=== PATIENT | female | born 1940 | race Caucasian/White ===

== ENCOUNTER → 2016-05-30 | Outpatient (CLI) | payer MEDICARE, OTHER | END | disposition home or self-care (01) | LOC: GMAL 12:16 | PROVIDERS: ATTEND Family Medicine | DX: D51.3 Other dietary vitamin B12 deficiency anemia (principal); E55.9 Vitamin D deficiency, unspecified ==

== ENCOUNTER → 2016-05-31 | Outpatient (CLI) | payer MEDICARE, OTHER | LOC: GMAL 14:12 | PROVIDERS: ATTEND Family Medicine | DX: D64.9 Anemia, unspecified (principal) ==

== ENCOUNTER → 2016-11-23 | Outpatient (CLI) | payer MEDICARE, OTHER | END | disposition home or self-care (01) | LOC: GMAL 11:14 | PROVIDERS: ATTEND Family Medicine | DX: R53.82 Chronic fatigue, unspecified (principal); E78.4 Other hyperlipidemia; I10 Essential (primary) hypertension ==

== ENCOUNTER → 2016-12-05 | Outpatient (CLI) | payer MEDICARE, OTHER ==
--- NOTE | 2016-12-07 11:45 | MAM ---
EXAM DESCRIPTION: 3D Screening BILATERAL : Digital Mammography. CLINICAL HISTORY: 76 years Female SCREENING . No complaints. Mother and sister with breast cancer. Postmenopausal. No HRT. COMPARISON: 2-D digital screening bilateral studies 12/01/2015 and 01/29/2013.. Report from prior examination also reviewed. TECHNIQUE: Bilateral CC and MLO projection full-field images, 3-D tomosynthesis digital mammographic technique. Also bilateral synthesized CC/ MLO full-field images. CAD not utilized. FINDINGS: The breast parenchymal density pattern is: Scattered areas of fibroglandular density. No skin thickening or nipple retraction bilateral solitary microcalcifications. Intramammary lymph node 930 clock position posterior third left breast. Bilateral vascular calcifications. No focal, stellate mass or density, focal asymmetry , and no suspicious microcalcifications bilaterally. Stable mammograms compared to prior study, taking into account differences in mammographic technique IMPRESSION: BI-RADS CATEGORY: 2 - BENIGN FINDINGS. FOLLOW UP: Routine digital bilateral screening, one year interval from November 2016. Written communication explaining the IMPRESSION and follow-up, will be mailed to the patient and referring health care provider. According to the [employer], yearly mammograms are recommended starting at age 40 and continuing as long as a woman is in good health. Any breast change noted on a breast self-exam should be reported promptly to the patient's healthcare provider. Breast MRI is recommended for women with an approximately 20-25% or greater lifetime risk of breast cancer, including women with a strong family history of breast or ovarian cancer and women who have been treated for Hodgkin's disease. A negative mammographic report should not delay tissue diagnosis in patients with significant clinical history or physical findings. Extremely dense breast tissue limits the sensitivity of digital mammography. Electronically signed by: Jalil Correa MD 12/07/2016 11:43 AM CDT
== END ==
LOC: MAMMO 13:38
PROVIDERS: ATTEND Family Medicine
DX: Z12.31 Encounter for screening mammogram for malignant neoplasm of breast (principal)
CPT/HCPCS: 77063; G0202

== ENCOUNTER → 2017-11-22 | Outpatient (CLI) | payer MEDICARE, OTHER | LOC: GMAL 10:30 | PROVIDERS: ATTEND Family Medicine | DX: D51.3 Other dietary vitamin B12 deficiency anemia (principal); D64.9 Anemia, unspecified; E55.9 Vitamin D deficiency, unspecified ==

== ENCOUNTER → 2017-12-14 | Outpatient (CLI) | payer MEDICARE, OTHER ==
--- NOTE | 2017-12-17 16:53 | MAM ---
EXAM DESCRIPTION: 3D Screening BILATERAL : Digital Mammography. CLINICAL HISTORY: 77 years Female SCREENING . No complaints or personal history of breast cancer. Mother and sister with breast cancer. Childbirth. Postmenopausal 43 years. Has taken HRT 5 or more years ago. Lifetime risk of developing breast cancer (Tyrer-Cuzick model)(%): 13.9. COMPARISON: Bilateral screening digital breast tomosynthesis 12/05/2016. TECHNIQUE: Bilateral CC and MLO projection full-field images, Digital tomosynthesis mammographic technique. Bilateral digital 2-D full-field MLO images. CAD not utilized. FINDINGS: The breast parenchymal density pattern is: Scattered areas of fibroglandular density. No skin thickening or nipple retraction. Small bilateral axillary lymph nodes. Bilateral solitary microcalcifications. Nodular mass density in the posterior third of the left breast at the 7:00 may have enlarged since the prior study. 6.5 cm from the nipple. No new focal, stellate mass or density, focal asymmetry , and no suspicious microcalcifications right breast. IMPRESSION: BI-RADS CATEGORY: 0 - INCOMPLETE- Need additional imaging evaluation. FOLLOW-UP: Recall for additional imaging: Left breast targeted ultrasound of the region of interest. Diagnostic digital mammography if indicated by the sonographic images.. Written communication concerning the IMPRESSION and Follow-up, will be mailed to the patient and referring health care provider. Electronically signed by: Jalil Correa MD 12/17/2017 4:52 PM CDT
== END ==
LOC: MAMMO 13:20
PROVIDERS: ATTEND Family Medicine
DX: Z12.31 Encounter for screening mammogram for malignant neoplasm of breast (principal)

== ENCOUNTER → 2017-12-31 | Outpatient (CLI) | payer MEDICARE, OTHER ==
--- NOTE | 2017-12-31 20:42 | US ---
EXAM DESCRIPTION: Breast,Left: Ultrasound CLINICAL HISTORY: 77 yearsFemaleABNORMAL MAMMOGRAM COMPARISON: Digital screening tomosynthesis bilateral breast 12/14/2017. TECHNIQUE: Transcutaneous scanning of the left breast utilizing romeo-scale and Doppler modes. Scanning performed by the gas jockey and Dr. Correa. FINDINGS: Scanning of the lower inner quadrant of the left breast middle third and anterior third. Heterogeneous fatty echotexture with scattered fibroglandular elements more anteriorly. No distinct solid mass or cyst. No parenchymal edema or large calcifications. No overlying skin changes. Normal vascularity. IMPRESSION: BI-RADS CATEGORY: 0 - INCOMPLETE- Need additional imaging evaluation. FOLLOW-UP: Recall for additional imaging: Orthogonal digital full-field diagnostic imaging left breast.. Written communication concerning the IMPRESSION and Follow-up, will be mailed to the patient and referring health care provider. Electronically signed by: Jalil Correa MD 12/31/2017 8:41 PM [facility]
== END ==
LOC: US 10:00
PROVIDERS: ATTEND Family Medicine
DX: R92.8 Other abnormal and inconclusive findings on diagnostic imaging of breast (principal)

== ENCOUNTER 2018-02-18 20:29 | Emergency (ER) | payer MEDICARE, OTHER ==
[2018-02-18 20:46] VITALS: TEMP 96.2
[2018-02-18] MEDS ORDERED: ONDANSETRON INJ 4 MG/2 ML VIAL IV ONE (20:54)
--- NOTE | 2018-02-18 20:57 | ED.PDOC ---
History of Present Illness - General Chief Complaint: Chest Pain/KS Stated Complaint: CHEST PAIN, N/V Time Seen by Provider: 02/18/18 20:49 Source: patient, family Exam Limitations: no limitations - History of Present Illness Initial Comments: Patient presents with N/V x three. She was sitting down and about to eat when it occurred. She had a hard bowel movement this morning. She says her abdomen "feels funny". She denies chest pain but says that she was worried about a heart attack because her father of one. No other complaints. Timing/Duration: 1 hour Severity: mild Improving Factors: nothing Worsening Factors: nothing Associated Symptoms: denies symptoms Allergies/Adverse Reactions: Allergies NO KNOWN ALLERGY Allergy (Verified 02/18/18 20:43) Home Medications: Ambulatory Orders Aspirin [Baby Aspirin] 81 mg PO QD 11/06/14 Multiple Vitamin [Multi-Vitamin] 1 tab PO DAILY 11/06/14 Atenolol & Chlorthalidone [Atenolol/Chlorthalidone 100-25 mg] 1 tab PO DAILY 11/09/14 Biotin 1,000 mcg PO DAILY 11/09/14 Calcium W/ Vitamins D & K [Calcium + D] 1 chw PO DAILY 11/09/14 Diltiazem HCl Coated Beads [Diltiazem Cd] 90 mg PO BID 11/09/14 Esomeprazole Magnesium [Nexium] 40 mg PO DAILY 11/09/14 Potassium Chloride [Micro-K] 8 meq PO TID 11/09/14 Ondansetron HCl [Zofran] 4 mg PO Q6HRS #10 ml 02/18/18 Simvastatin 20 mg PO DAILY 02/18/18 Review of Systems - Review of Systems Constitutional: States: no symptoms reported EENTM: States: no symptoms reported Respiratory: States: no symptoms reported Cardiology: States: no symptoms reported Gastrointestinal/Abdominal: States: see HPI Genitourinary: States: no symptoms reported Musculoskeletal: States: no symptoms reported Skin: States: no symptoms reported Neurological: States: no symptoms reported Endocrine: States: no symptoms reported Hematologic/Lymphatic: States: no symptoms reported Past Medical History (General) - Patient Medical History Hx Seizures: No Hx Dementia: No Hx Congestive Heart Failure: No Hx Thyroid Disease: No Hx Diabetes: No Family Medical History - Family History Mother Family History: No Known Physical Exam - Physical Exam General Appearance: Alert Eye Exam: bilateral normal Ears, Nose, Throat: normal ENT inspection Neck: non-tender, full range of motion, supple Respiratory: lungs clear, normal breath sounds Cardiovascular/Chest: normal peripheral pulses, regular rate, rhythm, no edema Gastrointestinal/Abdominal: normal bowel sounds, non tender, soft Back Exam: normal inspection, no CVA tenderness Extremity: normal range of motion, non-tender, normal inspection Neurologic: no motor/sensory deficits, alert, normal mood/affect, oriented x 3 Skin Exam: normal color Lymphatic: no adenopathy Progress - Progress Progress: 02/18/18 23:33 EKG showed sinus bradycardia. Patient was symptom free in the E.D. CT abdomen/pelvis showed no acute disease. Troponin negative. 02/18/18 23:37 This is not likely cardiac as she had no chest pain and labs/EKG unremarkable. Likely gastroenteritis. E.R. warnings given. Care instructions given. Questions were elicited and answered. The patient voiced understanding and agreement with the plan. Departure - Departure Clinical Impression: Gastroenteritis Disposition: Discharge to Home or Self Care Condition: Good Departure Forms: ED Discharge - Pt. Copy, Patient Portal Self Enrollment Instructions: DI for Chest Pain Diet: resume usual diet Activity: increase activity as tolerated Referrals: Delmer Lorenzo III, MD [Primary Care Provider] - 1-2 Weeks Prescriptions: Ondansetron HCl [Zofran] 4 mg PO Q6HRS #10 ml Home Medications: Ambulatory Orders Aspirin [Baby Aspirin] 81 mg PO QD 11/06/14 Multiple Vitamin [Multi-Vitamin] 1 tab PO DAILY 11/06/14 Atenolol & Chlorthalidone [Atenolol/Chlorthalidone 100-25 mg] 1 tab PO DAILY 11/09/14 Biotin 1,000 mcg PO DAILY 11/09/14 Calcium W/ Vitamins D & K [Calcium + D] 1 chw PO DAILY 11/09/14 Diltiazem HCl Coated Beads [Diltiazem Cd] 90 mg PO BID 11/09/14 Esomeprazole Magnesium [Nexium] 40 mg PO DAILY 11/09/14 Potassium Chloride [Micro-K] 8 meq PO TID 11/09/14 Ondansetron HCl [Zofran] 4 mg PO Q6HRS #10 ml 02/18/18 Simvastatin 20 mg PO DAILY 02/18/18 Additional Instructions: Increase oral fluids. Take medication as prescribed. Return to the E.R. for worsening symptoms.
--- NOTE | 2018-02-18 21:18 | RAD ---
EXAM DESCRIPTION: AP view of the chest CLINICAL HISTORY:77 years Female, chest pain Comparison: None FINDINGS: No focal lung consolidation. No pleural effusion. No pneumothorax. Cardiac and mediastinal silhouette is unremarkable. No acute osseous abnormality. Soft tissues are unremarkable. IMPRESSION: No acute findings. No focal lung consolidation. Electronically signed by: Balbir Ghosh DO 02/18/2018 9:16 PM [employer]ATIONAL SALES [employer]
[2018-02-18] MEDS ORDERED: POTASSIUM CHLORIDE 20 MEQ TAB PO ONE (21:45)
--- NOTE | 2018-02-18 22:21 | CT ---
CLINICAL HISTORY: abdominal pain and vomiting COMPARISON: None. 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 FINDINGS: The heart is mildly enlarged. Abdomen: The liver is normal in appearance. There is no biliary dilatation. There is a small hiatal hernia. Gallbladder is normally distended. There is a moderate duodenal diverticulum. The pancreas and spleen are normal in appearance. The adrenal glands and kidneys are unremarkable. Abdominal aorta is normal in course and caliber without aneurysm. There is no free air. There is no retroperitoneal adenopathy.The abdominal aorta is moderately calcified without aneurysm. Pelvis: There is severe diverticulosis of essentially the entire colon. Urinary bladder is unremarkable. There is no free fluid. Appendix is normal. Skeleton: There are no acute osseous findings. No suspicious bony lesions. IMPRESSION: No acute inflammatory process. No bowel obstruction. No renal or ureteral calculi. Electronically signed by: Sukhdeep Eden MD 02/18/2018 10:19 PM SLICE CUTTING MACHINE OPERATOR HELPER
[2018-02-18] MEDS ORDERED: ONDANSETRON ODT (ER DISP) 8 MG TAB PO ONE (23:39)
[2018-02-19 00:27] VITALS: BP 179/77; O2SAT 98
== END 2018-02-18 23:55 | disposition home or self-care (01) ==
LOC: ER 20:29
DX: K52.9 Noninfective gastroenteritis and colitis, unspecified (principal); R00.1 Bradycardia, unspecified
CPT/HCPCS: 71045; 74177; 80053; 82550; 82553; 83690; 83880; 84484; 85025; 85610; 85730; J2405

== ENCOUNTER → 2018-02-25 | Outpatient (CLI) | payer MEDICARE, OTHER ==
--- NOTE | 2018-02-25 15:08 | MRI ---
EXAM DESCRIPTION: Brain w/oContrast CLINICAL HISTORY: TIA COMPARISON: None available TECHNIQUE: Non contrast MRI of the brain is performed according to our usual protocol including multiplanar multi sequence technique. FINDINGS: Sagittal T1 images show intact corpus callosum. Normal pituitary gland with normal T1 appearance of the andrey and medulla and upper cervical cord. Normal signal intensity within the clivus and calvarium. Prominent hyperostosis frontalis interna. Axial T2 fat sat images reveal preservation of intracranial vascular flow voids. Normal romeo matter T2 signal intensity. Scattered hyperintensities are seen in the subcortical and deep central white matter both cerebral hemispheres consistent with chronic microvascular ischemic changes related to aging, diabetes or hypertension. Prominent ventricles and sulci consistent with age-related cerebral volume loss. The globes appear intact and symmetrical. No abnormal fluid signal in the paranasal sinuses. There is abnormal fluid signal in the left tympanic cavity and left mastoid air cells consistent with otomastoid effusion. Correlate with ENT exam. Axial flair images show increased signal intensity in the subcortical and central white matter of both cerebral hemispheres.. Diffusion weighted images are negative for focal intense increased signal intensity in the brain parenchyma to suggest restricted diffusion. ADC mapping is negative. Axial T1 images show normal romeo-white matter differentiation. No high signal intensity hemorrhagic lesion of the brain parenchyma. No subdural hematoma. Axial susceptibility weighted images are negative for focal signal loss to suggest abnormal brain parenchymal calcification or hemosiderin deposition. IMPRESSION: Chronic microvascular ischemic changes in the cerebral white matter. No acute intracranial pathologic process. Electronically signed by: Tony Zuñiga MD 02/25/2018 3:07 PM [facility]
== END ==
LOC: MRI 14:18
PROVIDERS: ATTEND Family Medicine
DX: G45.9 Transient cerebral ischemic attack, unspecified (principal)

== ENCOUNTER 2018-09-02 05:41 | Day surgery (SDC) | payer MEDICARE, OTHER ==
[2018-09-02] MEDS ORDERED: PROPARACAINE 0.5% OPHTH SOL 15 ML BTTL ONE (06:00)
[2018-09-02] MEDS ORDERED: MOXIFLOXACIN HCL (OPHTH) 1 DROP DROPS ONE (06:00)
[2018-09-02] MEDS ORDERED: TROP 1%/CYCLOPEN 1%/PHENYL 2% DROPS ONE (06:00)
[2018-09-02] MEDS ORDERED: MIDAZOLAM INJ 2 MG/2 ML VIAL ONE (10:12)
[2018-09-02] MEDS ORDERED: LIDOCAINE 1% MPF 2 ML VIAL INJ ONE (10:43)
[2018-09-02] MEDS ORDERED: MOXIFLOXACIN HCL (OPHTH) 1 DROP DROPS RIGHT_EYE ONE ×2 (10:46→10:54)
[2018-09-02] MEDS ORDERED: TOBRAMYCIN SULF 0.3 % OPHT SOL 1 DROP RIGHT_EYE ONE ×2 (10:46→10:54)
[2018-09-02] MEDS ORDERED: DEXAMETHASONE 0.1% OPHTH SOL 1 DROP RIGHT_EYE ONE ×2 (10:46→10:54)
[2018-09-02] MEDS ORDERED: BRIMONIDINE 0.2% OPHTH DROPS RIGHT_EYE ONE ×2 (10:47→10:54)
== END 2018-09-02 11:30 | disposition home or self-care (01) ==
LOC: AMB 05:41
PROVIDERS: ATTEND Ophthalmology
DX: H25.11 Age-related nuclear cataract, right eye (principal); I10 Essential (primary) hypertension; Z88.5 Allergy status to narcotic agent; Z79.82 Long term (current) use of aspirin
CPT/HCPCS: 00142; 66984; J2250

== ENCOUNTER 2018-09-16 05:46 | Day surgery (SDC) | payer MEDICARE, OTHER ==
[2018-09-16] MEDS ORDERED: MIDAZOLAM INJ 2 MG/2 ML VIAL ONE (06:57)
[2018-09-16] MEDS ORDERED: TROP 1%/CYCLOPEN 1%/PHENYL 2% DROPS ONE (07:00)
[2018-09-16] MEDS ORDERED: PROPARACAINE 0.5% OPHTH SOL 15 ML BTTL LEFT_EYE ONE (09:05)
[2018-09-16] MEDS ORDERED: MOXIFLOXACIN HCL (OPHTH) 1 DROP DROPS LEFT_EYE ONE ×2 (09:12→09:23)
[2018-09-16] MEDS ORDERED: DEXAMETHASONE 0.1% OPHTH SOL 1 DROP LEFT_EYE ONE ×2 (09:12→09:23)
[2018-09-16] MEDS ORDERED: TOBRAMYCIN SULF 0.3 % OPHT SOL 1 DROP LEFT_EYE ONE ×2 (09:12→09:23)
[2018-09-16] MEDS ORDERED: LIDOCAINE 1% MPF 2 ML VIAL INJ ONE (09:12)
[2018-09-16] MEDS ORDERED: BRIMONIDINE 0.2% OPHTH DROPS LEFT_EYE ONE ×2 (09:13→09:23)
== END 2018-09-16 10:10 | disposition home or self-care (01) ==
LOC: AMB 05:46
PROVIDERS: ATTEND Ophthalmology
DX: H25.12 Age-related nuclear cataract, left eye (principal); I10 Essential (primary) hypertension; Z88.5 Allergy status to narcotic agent; Z79.82 Long term (current) use of aspirin
CPT/HCPCS: 00142; 66984; J2250

== ENCOUNTER → 2018-11-22 | Outpatient (CLI) | payer MEDICARE, OTHER | LOC: GMAL 12:16 | PROVIDERS: ATTEND Family Medicine | DX: I10 Essential (primary) hypertension (principal); E11.9 Type 2 diabetes mellitus without complications; E78.49 Other hyperlipidemia ==

== ENCOUNTER → 2019-04-08 | Outpatient (CLI) | payer MEDICARE, OTHER | LOC: GMAL 10:40 | PROVIDERS: ATTEND Family Medicine | DX: D51.3 Other dietary vitamin B12 deficiency anemia (principal); R53.82 Chronic fatigue, unspecified; E55.9 Vitamin D deficiency, unspecified; I10 Essential (primary) hypertension; E11.9 Type 2 diabetes mellitus without complications; E78.49 Other hyperlipidemia ==

== ENCOUNTER 2019-08-25 16:39 | Emergency (ER) | payer MEDICARE, OTHER ==
--- NOTE | 2019-08-25 17:25 | ED.PDOC ---
History of Present Illness - General Time Seen by Provider: 08/25/19 17:01 - History of Present Illness Initial Comments: CC: left ear foreign body 79 F +pmh presents to ED c/o retained rubber ear piece in her left ear from her hearing aid. Denies associated dizziness, headache, ear pain, f/c. No alleviating/aggravating factors. Pt denies any other complaints. Allergies/Adverse Reactions: Allergies Codeine Allergy (Verified 09/02/18 09:27) Home Medications: Ambulatory Orders Aspirin [Baby Aspirin] 81 mg PO QD 11/06/14 Multiple Vitamin [Multi-Vitamin] 1 tab PO DAILY 11/06/14 Atenolol & Chlorthalidone [Atenolol/Chlorthalidone 100-25 mg] 1 tab PO DAILY 11/09/14 Calcium W/ Vitamins D & K [Calcium + D] 1 chw PO DAILY 11/09/14 Diltiazem HCl Coated Beads [Diltiazem Cd] 90 mg PO BID 11/09/14 Esomeprazole Magnesium [Nexium] 80 mg PO BEDTIME 11/09/14 Potassium Chloride [Micro-K] 8 meq PO TID 11/09/14 Simvastatin 20 mg PO DAILY 02/18/18 Review of Systems - Review of Systems EENTM: States: other - left ear foreign body. Denies: ear pain, ear discharge Gastrointestinal/Abdominal: Denies: nausea, vomiting Neurological: Denies: headache Past Medical History (General) - Patient Medical History Hx Seizures: No Hx Dementia: No Hx Congestive Heart Failure: No Hx Thyroid Disease: No Hx Diabetes: - N/A Family Medical History - Family History Mother Family History: No Known Physical Exam - Physical Exam General Appearance: Alert, Comfortable, No apparent distress Eye Exam: bilateral normal Ear Exam: left ear: auricle normal, canal normal, TM normal, foreign body - clear rubber ear piece Cardiovascular/Respiratory: regular rate, rhythm, no JVD, normal breath sounds, no respiratory distress Neurologic: alert, normal mood/affect, oriented x 3 Skin Exam: normal color, warm/dry, other - no rash Progress - Progress Progress: Abad Boyle DO [employer]: [id number] Procedures - Foreign Body Removal Foreign Body Removal: other - rubber fitting for hearing aid Foreign Body Physician Comment:: Abad Boyle DO. Removed with forceps on first attempt. No complications. Departure - Departure Clinical Impression: Ear foreign body Time of Disposition: 17:24 Disposition: Discharge to Home or Self Care Condition: Excellent Instructions: Removing Objects Stuck in the Ear Diet: resume usual diet Referrals: Delmer Lorenzo III, MD [Primary Care Provider] - 1-2 Weeks Home Medications: Ambulatory Orders Aspirin [Baby Aspirin] 81 mg PO QD 11/06/14 Multiple Vitamin [Multi-Vitamin] 1 tab PO DAILY 11/06/14 Atenolol & Chlorthalidone [Atenolol/Chlorthalidone 100-25 mg] 1 tab PO DAILY 11/09/14 Calcium W/ Vitamins D & K [Calcium + D] 1 chw PO DAILY 11/09/14 Diltiazem HCl Coated Beads [Diltiazem Cd] 90 mg PO BID 11/09/14 Esomeprazole Magnesium [Nexium] 80 mg PO BEDTIME 11/09/14 Potassium Chloride [Micro-K] 8 meq PO TID 11/09/14 Simvastatin 20 mg PO DAILY 02/18/18
[2019-08-25 18:04] VITALS: BP 160/65; TEMP 97.8; O2SAT 97
== END 2019-08-25 17:55 | disposition home or self-care (01) ==
LOC: ER 16:39
DX: T16.2XXA Foreign body in left ear, initial encounter (principal); Z79.82 Long term (current) use of aspirin; Y92.9 Unspecified place or not applicable

== ENCOUNTER → 2020-03-08 | Outpatient (CLI) | payer MEDICARE, OTHER | LOC: GMAL 16:54 | PROVIDERS: ATTEND Family Medicine | DX: M10.9 Gout, unspecified (principal); E78.49 Other hyperlipidemia; Z79.899 Other long term (current) drug therapy; E11.9 Type 2 diabetes mellitus without complications ==